=== PATIENT | female | born 1970 | race Two or more races ===

== ENCOUNTER → 2024-02-23 | Outpatient (CLI) | payer MEDICAID, SELFPAY ==
--- NOTE | 2024-02-23 13:30 | XR_ITS ---
Examination: Venous duplex lower extremity sonogram, bilateral. Date and time of exam: February 23, 2024 1354 hours INDICATIONS: Bilateral leg and knee pain instability in the legs 10 months burning sensation in the legs several months Technique: Multiple sonographic images of the deep venous system have been obtained. B-mode/2-D grayscale imaging of vascular structures and Doppler spectral analysis (waveforms) and color performed Both legs are examined. Findings: Deep venous systems do not demonstrate abnormal echogenicity. All visualized deep veins exhibit compressibility. All visualized deep veins exhibit augmentation. Impression: Negative for deep vein thrombosis
== END | disposition home or self-care (01) ==
PROVIDERS: PCP Nurse Practitioner Family; Referring Provider Nurse Practitioner Family; Visit Provider Nurse Practitioner Family
DX: I87.2 Venous insufficiency (chronic) (peripheral) (principal)
CPT/HCPCS: 93970

== ENCOUNTER 2024-04-11 08:04 | Outpatient (RCR) | payer MEDICAID, SELFPAY ==
--- NOTE | 2024-04-11 08:39 | PT.OIERPT ---
PT OP Initial Eval Patient Information Outpatient Physical Therapy Treatment Date: 04/11/24 Visit Reasons: Spinal stenosis/Cervical Region Medical Diagnosis: M48.02 Treatment Dx #1: neck pain Start of Care: 04/11/24 Date of Onset: 10 months Smoking Status Smoking Status: Never smoker Initial Assessment Subjective: Pt is 54 yr old croatian speaking female who reports neck pain on the R>L sides. Increased pain in the neck with lifting things and looking to the R side. In the past she has felt numbness and pain into the UE's but hasn't had that for a month. PMH: high cholesterol Imaging: MRI of neck C4-C5 mild left neural foraminal stenosis, C5-C6 advanced left neural foraminal stenosis Pt goal: to get rid of the neck pain Objective: C/S AROM: ? Ext 50% with pain in R UT at end-range ? Flexion full ? L rotation: 80% of full with pain R UT ? R rotation: full ? TTP: moderate of lower C/S paraspinals around C4-7 and UT?s on R side ? B shoulder AROM: full FF ? [employer] lab[employer] strength: R: 85 lbs, L: 80 lbs Assessment: Pt presents with myofascial tenderness of lower C/S and R side UT. Pt requires skilled therapy to meet goals and has fair rehab potential. Short Term and [facility]ci Goals 1. Ind with HEP ? 2. Improved L rotation to 65 deg without pain ? 3. Decreased TTP of lower C/S on R from mod to min ? 4. Pt will turn head L to R x5 with <=4/10 pain Treatment Plan 1. Manual therapy ? 2. Therex ? 3. Modalities as indicated, mechanical traction, estim, moist heat, ice Frequency and Duration: 1-2x a week for 8 Rx sessions plus evaluation Certification Dates: 04/11/24 to 07/09/24 Procedure Charges OP PT Eval Mod Complex 30 minutes: Yes
== END 2024-04-15 23:59 | disposition home or self-care (01) ==
LOC: CPTX 08:04
PROVIDERS: PCP Nurse Practitioner Family; Referring Provider Nurse Practitioner Family; Visit Provider Nurse Practitioner Family
DX: M48.02 Spinal stenosis, cervical region (principal)
CPT/HCPCS: 97162

== ENCOUNTER → 2024-05-06 | Outpatient (CLI) | payer MEDICAID, SELFPAY ==
--- NOTE | 2024-05-06 14:00 | XR_ITS ---
Examination: Breast ultrasound complete, bilateral Date and time of exam: May 06, 2024 1425 hours INDICATIONS: Mammogram 11/11/2023 15 mm focal asymmetry upper outer left breast Technique: Real-time grayscale ultrasonographic imaging bilateral breasts, including all 4 quadrants as well as nipple retroareolar and axillary regions. Findings: No cystic or solid mass involving either breast IMPRESSION: BI-RADS Category 1: Negative study
--- NOTE | 2024-05-06 15:00 | XR_ITS ---
Examination: Diagnostic digital mammography, unilateral, left Computer aided detection 3-D breast Tomosynthesis, unilateral Date and time of exam: May 06, 2024 1439 hours INDICATIONS: Mammogram 12/11/2023 15 mm focal asymmetry outer left breast Technique: Nonmagnified MLO, CC views of the left breast have been obtained, reconstructed from 3-D Tomosynthesis images. R2 computer aided detection program utilized for evaluation of suspicious masses and/or abnormal calcifications. 3-D Tomosynthesis images obtained. Findings: Breast is heterogeneously dense, which may obscure small masses Spot compression views demonstrate circumscribed 5 mm nodule outer left breast which may represent intramammary lymph node Impression: BI-RADS category 3: Probably benign findings One additional 6 month left mammogram follow-up is needed to document stability of probably benign 5 mm intramammary lymph node outer left breast
== END | disposition home or self-care (01) ==
LOC: CDIM 13:47
PROVIDERS: PCP Nurse Practitioner Family; Referring Provider Nurse Practitioner Family; Visit Provider Nurse Practitioner Family
DX: R92.332 Mammographic heterogeneous density, left breast (principal)
CPT/HCPCS: 76641; 77061; 77065; G0279

== ENCOUNTER 2024-05-16 09:00 | Outpatient (RCR) | payer MEDICAID, SELFPAY ==
--- NOTE | 2024-04-18 10:01 | PT.ODAYNRPT ---
PT Outpatient Daily Note OP Daily Note Outpatient Physical Therapy Treatment Date: 04/18/24 Visit Reasons: Spinal stenosis/cervical region Subjective: Same as time of eval Objective: see f/S for sarita CABRAL x5' MT: PRUDENCIO [place] UT's x7' Assessment: Good demo of chin tucks with low neck pain Plan: Continue with POC Length of Time (minutes) of Treatment: 30 Minutes Procedure Charges Therapeutic Exercise 30 minutes: Yes
--- NOTE | 2024-04-20 09:40 | PT.ODAYNRPT ---
PT Outpatient Daily Note OP Daily Note Outpatient Physical Therapy Treatment Date: 04/20/24 Visit Reasons: Spinal stenosis/cervical region Subjective: Pt reports neck is doing ok. Objective: Please see flow sheet for ther ex list. Assessment: Pt demonstrates good technique during cervical retraction exercise moving c/s in desired direction. Plan: Continue with POC. Length of Time (minutes) of Treatment: 30 Minutes Procedure Charges Therapeutic Exercise 30 minutes: Yes
--- NOTE | 2024-04-25 09:55 | PT.ODAYNRPT ---
PT Outpatient Daily Note OP Daily Note Outpatient Physical Therapy Treatment Date: 04/25/24 Visit Reasons: Spinal stenosis/cervical region Subjective: Continued pain R side of upper T/S Objective: see f/S for jesusx MISHA x5' MT: PRUDENCIO [place] UT's x7' Assessment: Good demo of chin tucks with low neck pain Plan: Continue with POC Length of Time (minutes) of Treatment: 30 Minutes Procedure Charges Therapeutic Exercise 30 minutes: Yes
--- NOTE | 2024-04-27 09:31 | PT.ODAYNRPT ---
PT Outpatient Daily Note OP Daily Note Outpatient Physical Therapy Treatment Date: 04/27/24 Visit Reasons: Spinal stenosis/cervical region Subjective: Pt c/o 09/25 neck pain and shared that yesterday was 11/25. Pt mentioned that the last time she had a follow up with doctor she did not tell the doctor of her pain level because she does not want to be prescribed pain meds, she does not like to take them. Objective: Please see flow sheet for ther ex list. Assessment: Regressed interventions to accommodate reported pain. Plan: Continue with POC, assess respone to treatment. Length of Time (minutes) of Treatment: 30 Minutes Procedure Charges Therapeutic Exercise 30 minutes: Yes
--- NOTE | 2024-05-04 09:53 | PT.ODAYNRPT ---
PT Outpatient Daily Note OP Daily Note Outpatient Physical Therapy Treatment Date: 05/04/24 Visit Reasons: Spinal stenosis/cervical region Subjective: Pt reports neck feel the same, continues to have pain. Objective: Please see flow sheet for ther ex list. Assessment: Added mechanical traction to c/s, pt tolerated well. Plan: Continue with pOC. Length of Time (minutes) of Treatment: 30 Minutes Procedure Charges Therapeutic Exercise 30 minutes: Yes
--- NOTE | 2024-05-11 10:08 | PT.ODAYNRPT ---
PT Outpatient Daily Note OP Daily Note Outpatient Physical Therapy Treatment Date: 05/11/24 Visit Reasons: Spinal stenosis/cervical region Subjective: Pt reports she felt some relief after last PT session. Objective: Please see flow sheet for ther ex list. Assessment: Applied cervical traction, pt tolerated well completed with good tolerance. Plan: Continue with POC. Length of Time (minutes) of Treatment: 30 Minutes Procedure Charges Therapeutic Exercise 30 minutes: Yes
--- NOTE | 2024-05-13 10:33 | PT.ODAYNRPT ---
PT Outpatient Daily Note OP Daily Note Outpatient Physical Therapy Treatment Date: 05/13/24 Visit Reasons: Spinal stenosis/cervical region Subjective: Pt reports neck pain has reduced some. pt c/o tingling sensation on the back of the head, has experienced it before. Objective: Please see flow sheet for ther ex list. Assessment: Decrease c/o pain during interventions indicating progress. Plan: Continue with POC. Length of Time (minutes) of Treatment: 30 Minutes Procedure Charges Therapeutic Exercise 30 minutes: Yes
--- NOTE | 2024-05-16 18:34 | PT.ODS1RPT ---
PT OP Progress/Discharge Note Date of Service: 05/16/24 Progress Note/DC Note Progress Note/Discharge Note: Progress Note Patient Information Visit Reasons: Spinal stenosis/cervical region Service Continue Service or Discharge: Continue Service Status Subjective: Continued pain R side of upper T/S. Objective: see f/S for therex MHP x5' Assessment: Pt has attended 8/8 Rx visits on the provider referral with fair progress with good response to cervical traction to reduce neck pain. Pt has good demo of chin tucks with low neck pain. She has decreased TTP of lower C/S on R from mod to min. Pt would benefit from continued therapy to meet AROM goal of 65 deg of L rotation. Plan: Request additional visits x8. We need provider's signature on this note to continue with POC Procedure Charges Therapeutic Exercise 30 minutes: Yes
== END 2024-05-16 23:59 | disposition home or self-care (01) ==
LOC: CPTX 09:00
PROVIDERS: PCP Nurse Practitioner Family; Referring Provider Nurse Practitioner Family; Visit Provider Nurse Practitioner Family
DX: M48.02 Spinal stenosis, cervical region (principal)
CPT/HCPCS: 97110

== ENCOUNTER → 2024-06-15 | Outpatient (CLI) | payer MEDICAID, SELFPAY ==
--- NOTE | 2024-06-15 | XR_ITS ---
Examination: Lumbar spine 3 views Technique one AP lateral coned lateral lower lumbar spine 3 views Exam date and time: June 15, 2024 1240 hours INDICATIONS: Patient fell one year ago with injury to lower back, persistent lower back pain radiating down the right hip. FINDINGS: Lumbar dextroscoliosis 8 degrees Spina bifida S1 No lumbar fracture Mild disc narrowing L5-S1 IMPRESSION: No lumbar fracture Mild disc narrowing L5-S1
== END | disposition home or self-care (01) ==
PROVIDERS: PCP Nurse Practitioner Family; Referring Provider Nurse Practitioner Family; Visit Provider Nurse Practitioner Family
DX: M48.07 Spinal stenosis, lumbosacral region (principal); M54.42 Lumbago with sciatica, left side; M54.41 Lumbago with sciatica, right side
CPT/HCPCS: 72100

== ENCOUNTER → 2024-08-17 | Outpatient (CLI) | payer MEDICAID, SELFPAY ==
--- NOTE | 2024-08-17 | XR_ITS ---
Examination: Lumbar spine, 5 views Technique: Lumbar spine AP, lateral, coned lateral lower lumbar spine, bilateral obliques 5 views Exam date and time: August 17, 2024 1213 hours INDICATIONS: Low back pain beginning one year ago. FINDINGS: Lumbar dextroscoliosis 8 degrees Spina bifida S1 Mild to moderate narrowing hip joints Mild to moderate diffuse facet arthropathy No lumbar fracture Mild disc narrowing L5-S1 No spondylolisthesis IMPRESSION: Mild disc narrowing L5-S1
--- NOTE | 2024-08-17 | XR_ITS ---
Examination: Sacroiliac joints TECHNIQUE: AP, SAEED CUBAN sacroiliac joints 3 views Date and time: August 17, 2024 1216 hours INDICATIONS: Syncopal pain one year. FINDINGS: Mild bilateral sacroiliitis, sclerosis and minimal cortical bone erosions at the SI joints Symmetrical sacral foramina No fractures IMPRESSION: Mild bilateral sacroiliitis
== END | disposition home or self-care (01) ==
PROVIDERS: PCP Nurse Practitioner Family; Referring Provider Internal Medicine Rheumatology; Visit Provider Internal Medicine Rheumatology
DX: M48.07 Spinal stenosis, lumbosacral region (principal); M46.1 Sacroiliitis, not elsewhere classified
CPT/HCPCS: 72110; 72202

== ENCOUNTER 2024-10-12 09:00 | Outpatient (RCR) | payer MEDICAID, SELFPAY ==
--- NOTE | 2024-09-28 14:43 | PTNOTE_ITS ---
PT OP Initial Eval Patient Information Outpatient Physical Therapy Treatment Date: 09/28/24 Visit Reasons: Lumbar spine Medical Diagnosis: M54.50 Treatment Dx #1: LBP Start of Care: 09/28/24 Date of Onset: 1 yr ago Smoking Status Smoking Status: Never smoker Initial Assessment Subjective: Pt is 54 yr old uzbek speaking female who c/o LBP and L sided pain and the LE feels numb. Increased pain with bending, prolonged standing and walking. She hasn't been working due to this and other pain. PMH: high cholesterol Imaging: Xrays of L/S Lumbar dextroscoliosis 8 degrees?, spina bifida S1?, Mild to moderate diffuse facet arthropathy, Mild disc narrowing L5-S1? Pt goal: to get rid of the LBP Objective: Trunk ArOM: ? B SB 50% of normal ? Extension: 20% with pain around L4-5, L5-S1 ? Flexion: 15 from floor with LBP ? B rotation: 60% ? TTP: moderate paraspinals L5-S1 ? Neuro: B SLR: negative Assessment: Pt presents with trunk extension sensitivity consistent with Xrays that show increased sacral angle. Pt requires skilled therapy to meet goals and has fair rehab potential. Eval followed by HEP. Short Term and Buffer Inflated Pad Goals 1. Ind with HEP ? 2. Improved standing tolerance to 40 minutes with <=4/10 LBP ? 3. Decreased lower paraspinal TTP from mod to min 4. Improved HH chore tolerance to at least 30 minutes with <=3/10 LBP and no ?increase in LE ssx ? Treatment Plan 1. Manual therapy ? 2. Therex ? 3. Modalities as indicated, moist heat, ice, estim, mechanical traction ? Frequency and Duration: 1-2x a week for 12 visits plus the evaluation Certification Dates: 09/28/24 to 12/27/24 Procedure Charges OP PT Eval Mod Complex 30 minutes: Yes
--- NOTE | 2024-10-03 09:10 | PT.ODAYNRPT ---
PT Outpatient Daily Note OP Daily Note Outpatient Physical Therapy Treatment Date: 10/03/24 Visit Reasons: Lumbar spine Subjective: Same as time of evaluation Objective: See F/S for therex Assessment: Good demo of posterior pelvic tilting to decrease sacral angle in supine and on the wall Plan: Continue per POC Length of Time (minutes) of Treatment: 30 Minutes Procedure Charges Therapeutic Exercise 30 minutes: Yes
--- NOTE | 2024-10-10 09:46 | PT.ODAYNRPT ---
PT Outpatient Daily Note OP Daily Note Outpatient Physical Therapy Treatment Date: 10/10/24 Visit Reasons: Lumbar spine Subjective: Continued R sided LBP Objective: See F/S for therex MHPx7' MT: STM R side of L/S and HVT rotary x1, x7' Assessment: Good demo of posterior pelvic tilting to decrease sacral angle in supine and on the wall Plan: Continue per POC Length of Time (minutes) of Treatment: 30 Minutes Procedure Charges Therapeutic Exercise 30 minutes: Yes
--- NOTE | 2024-10-12 10:57 | PT.ODAYNRPT ---
PT Outpatient Daily Note OP Daily Note Outpatient Physical Therapy Treatment Date: 10/12/24 Visit Reasons: Lumbar spine Subjective: Pt reports LBP is the same, no changes to report. Objective: Please see flow sheet for ther ex list. Assessment: Pt presents with slow progress with symptoms. Plan: Continue with pOC. Length of Time (minutes) of Treatment: 30 Minutes Procedure Charges Therapeutic Exercise 30 minutes: Yes
== END 2024-10-16 23:59 | disposition home or self-care (01) ==
LOC: CPTX 09:00
PROVIDERS: PCP Nurse Practitioner; Referring Provider Nurse Practitioner; Visit Provider Nurse Practitioner
DX: M54.50 Low back pain, unspecified (principal); R20.0 Anesthesia of skin
CPT/HCPCS: 97110; 97162

== ENCOUNTER 2024-11-01 08:00 | Outpatient (RCR) | payer MEDICAID, SELFPAY ==
--- NOTE | 2024-10-18 09:25 | PT.ODAYNRPT ---
PT Outpatient Daily Note OP Daily Note Outpatient Physical Therapy Treatment Date: 10/18/24 Visit Reasons: Lumbar spine Subjective: Pt reports some improvement in pain intensity of L/S. Objective: Please see flow sheet for ther ex list. Assessment: Pt demonstrates good technique with PPT exercise indicating compliance with HEP. Plan: Continue with pOC. Length of Time (minutes) of Treatment: 30 Minutes Procedure Charges Therapeutic Exercise 30 minutes: Yes
--- NOTE | 2024-10-20 10:40 | PTNOTE_ITS ---
PT Outpatient Daily Note OP Daily Note Outpatient Physical Therapy Treatment Date: 10/20/24 Visit Reasons: Lumbar spine Subjective: Pt reports progress with l/s are slow continues to have numbing sensation of L LE. Objective: Please see flow sheet for ther ex list. Assessment: Added mechanical traction, pt tolerated well. Plan: Assess response to treatment. Length of Time (minutes) of Treatment: 30 Minutes Procedure Charges Therapeutic Exercise 30 minutes: Yes
--- NOTE | 2024-10-27 10:06 | PT.ODAYNRPT ---
PT Outpatient Daily Note OP Daily Note Outpatient Physical Therapy Treatment Date: 10/27/24 Visit Reasons: Lumbar spine Subjective: Pt reports increase in LE numbing post last PT session lated a few hours. Pt reports that she is stil having pain in R l/s region and numbing/tingling in L LE is still present but not consisitent. Objective: Please see flow sheet for ther ex list. Assessment: Pt instructed on april, pt able to perform with isometric abdominal contraction. Plan: Continue with poC. Length of Time (minutes) of Treatment: 30 Minutes Procedure Charges Therapeutic Exercise 30 minutes: Yes
--- NOTE | 2024-11-01 13:00 | PT.ODS1RPT ---
PT OP Progress/Discharge Note Date of Service: 11/01/24 Progress Note/DC Note Progress Note/Discharge Note: DC Note Patient Information Visit Reasons: Lumbar spine Service Continue Service or Discharge: Discharge Discharge Date: 11/01/24 Status Subjective: The LBP is about the same as before therapy and she wants to do therapy for her knee and be done with the L/S. Objective: Trunk AROM: FB: 12 from floor with LBP Extension: 30% of full with pain around R L5-S1 TTP: moderate L5-S1 paraspinals on R Assessment: Pt attended the evaluation and 6 Rx sessions with limited progress with therapy goals due to continued LBP. Pt presents with trunk extension sensitivity consistent with Xrays that show increased sacral angle. She was taught posterior pelvic tilting which should help with the sacral angle. She hasn't met her goals. PT recommends further diagnostic imaging of L/S such as MRI. Plan: D/C Procedure Charges Therapeutic Exercise 30 minutes: Yes
== END 2024-11-15 23:59 | disposition home or self-care (01) ==
LOC: CPTX 08:00
PROVIDERS: PCP Nurse Practitioner; Referring Provider Nurse Practitioner; Visit Provider Nurse Practitioner
DX: M54.50 Low back pain, unspecified (principal); R20.0 Anesthesia of skin
CPT/HCPCS: 97110

== ENCOUNTER 2024-11-15 08:00 | Outpatient (RCR) | payer MEDICAID, SELFPAY ==
--- NOTE | 2024-11-03 09:38 | PT.OIERPT ---
PT OP Initial Eval Patient Information Outpatient Physical Therapy Treatment Date: 11/03/24 Visit Reasons: RT knee Medical Diagnosis: Z98.890 Treatment Dx #1: R knee pain Start of Care: 11/03/24 Date of Onset: 07/27/24 Smoking Status Smoking Status: Never smoker Initial Assessment Subjective: Pt is 54 yr old montenegrin speaking female s/p R knee A/S reports knee pain with squatting and stairs. She can walk all day but has pain with squatting. PMH: high cholesterol Pt goal: to get rid of the pain Objective: R knee AROM: ? Flexion: full ? Extension: -3 deg ? Varus/valgus: positive gapping into valgus ? SLR: 65 deg with slight extensor lag ? Strength: R quads 4-/5 hamstrings 4/5 Assessment: Pt presentation consistent with post op R knee A/S with decreased ROM, ? strength and WB tolerance. Pt ambulates with decreased WB on R. Pt can SLR slowly and has slight extensor lag. Pt has ? good rehab potential with attainable functional improvement. Short Term and Intermediate Goals 1. Independent with HEP ? 2. Improved quad and hamstring strength to 4+/5 ? 3. Improved squat tolerance x10 without R knee pain 4. Pt will ascend/descend 1 flight of stairs with <=3/10 R knee pain Treatment Plan 1. Manual therapy ? 2. Therex ? 3. Modalities as indicated, moist heat, ice, estim ? Frequency and Duration: 2x a week for 12 Rx sessions plus the evaluation Certification Dates: 11/03/24 to 01/31/25 Procedure Charges OP PT Eval Mod Complex 30 minutes: Yes
--- NOTE | 2024-11-08 10:38 | PTNOTE_ITS ---
PT Outpatient Daily Note <TERESE Pineda - Last Filed: 11/08/24 10:40> OP Daily Note Outpatient Physical Therapy Treatment Date: 11/08/24 Visit Reasons: RT knee Subjective: Pt c/o minimal Rt knee pain, explains pain increases with squats and ascending/descending stairs. Objective: See F/S for therex performed Assessment: No increase in pain with therex. Min vc's required to avoid trunk lean with 3- way hip exercise; able to self correct. Demo'd good mechanics with total gym squats. Plan: Continue with POC Length of Time (minutes) of Treatment: 30 Minutes <Greg Alex, PT - Last Filed: 12/12/24 17:06> OP Daily Note Subjective: Pt says pain increases with squats and ascending/descending stairs. Objective: See F/S for therex Assessment: Low R knee pain with therex Plan: Continue per POC Procedure Charges <TERESE Pineda - Last Filed: 11/08/24 10:40> Therapeutic Exercise 30 minutes: Yes
--- NOTE | 2024-11-10 09:34 | PT.ODAYNRPT ---
PT Outpatient Daily Note OP Daily Note Outpatient Physical Therapy Treatment Date: 11/10/24 Visit Reasons: RT knee Subjective: Pt c/o minimal Rt knee pain Objective: See F/S for therex performed Assessment: Progressed to resisted lateral steps and monster walk; good tolerance with appropriate fatigue. Min vc's required to avoid trunk leaning with resisted lateral steps. No increase in pain with therex. Plan: Continue with POC Length of Time (minutes) of Treatment: 30 Minutes Procedure Charges Therapeutic Exercise 30 minutes: Yes
--- NOTE | 2024-11-15 08:34 | PT.ODAYNRPT ---
PT Outpatient Daily Note OP Daily Note Outpatient Physical Therapy Treatment Date: 11/15/24 Visit Reasons: RT knee Subjective: Pt states she is doing well with no pain to Rt knee Objective: See F/S for therex performed Assessment: Improved squat mechanics; performed best with using treatment table as tactile cue. No pain with therex and appropriate fatigue. Plan: Continue with POC Length of Time (minutes) of Treatment: 30 Minutes Procedure Charges Therapeutic Exercise 30 minutes: Yes
== END 2024-11-15 23:59 | disposition home or self-care (01) ==
LOC: CPTX 08:00
PROVIDERS: PCP Orthopaedic Surgery; Referring Provider Orthopaedic Surgery; Visit Provider Orthopaedic Surgery
DX: M25.561 Pain in right knee (principal); Z98.890 Other specified postprocedural states
CPT/HCPCS: 97110; 97162

== ENCOUNTER 2024-12-01 08:00 | Outpatient (RCR) | payer MEDICAID, SELFPAY ==
--- NOTE | 2024-11-17 09:08 | PT.ODAYNRPT ---
PT Outpatient Daily Note OP Daily Note Outpatient Physical Therapy Treatment Date: 11/17/24 Visit Reasons: right knee pain Subjective: Pt c/o minimal soreness to Rt knee Objective: See F/S for therex performed Assessment: Improved independence with exercises, less corrective cues required to avoid compensation with trunk movement. No increase in pain with therex. Plan: Continue with POC Length of Time (minutes) of Treatment: 30 Minutes Procedure Charges Therapeutic Exercise 30 minutes: Yes
--- NOTE | 2024-11-22 09:20 | PT.ODAYNRPT ---
PT Outpatient Daily Note OP Daily Note Outpatient Physical Therapy Treatment Date: 11/22/24 Visit Reasons: right knee pain Subjective: Pt points to the lateral distal quad as site of pain when she squats Objective: See F/S for therex TENS: x5' Assessment: Pt has moderate gapping with valgus stress testing which may contribute to ssx. Plan: Continue per POC Length of Time (minutes) of Treatment: 30 Minutes Procedure Charges Therapeutic Exercise 30 minutes: Yes
--- NOTE | 2024-11-24 08:12 | PT.ODAYNRPT ---
PT Outpatient Daily Note OP Daily Note Outpatient Physical Therapy Treatment Date: 11/24/24 Visit Reasons: right knee pain Subjective: Pt points to the lateral distal quad as site of pain when she squats Objective: See F/S for therex TENS: x5' with MHP Assessment: Pt has moderate gapping with valgus stress testing which may contribute to continued pain Plan: Continue per POC Length of Time (minutes) of Treatment: 30 Minutes Procedure Charges Therapeutic Exercise 30 minutes: Yes
--- NOTE | 2024-11-29 08:33 | PT.ODAYNRPT ---
PT Outpatient Daily Note OP Daily Note Outpatient Physical Therapy Treatment Date: 11/29/24 Visit Reasons: right knee pain Subjective: Pt points to the lateral distal quad as site of pain when she squats Objective: See F/S for therex TENS: x7' Assessment: Pt has moderate gapping with valgus stress testing which may contribute to continued pain Plan: Continue per POC Length of Time (minutes) of Treatment: 30 Minutes Procedure Charges Therapeutic Exercise 30 minutes: Yes
--- NOTE | 2024-12-01 10:33 | PT.ODS1RPT ---
PT OP Progress/Discharge Note Date of Service: 12/01/24 Progress Note/DC Note Progress Note/Discharge Note: DC Note Patient Information Visit Reasons: right knee pain Service Continue Service or Discharge: Discharge Status Subjective: The R knee feels about the same since starting therapy. She reports a clicking and points to the posterolateral part of the knee and that the R lateral fat pad hurts. She's ready to be done with therapy. Objective: R knee ArOM: Flexion: full Extension: full SLR: 65 deg Strength: Quads: 4/5 HS: 4/5 Assessment: Pt has attended 09/23 visits with limited progress with therapy goals due to continued R knee pain. Pt has improved knee extension ROM to full. She has improved quad and HS strength to 4/5 which is short of goal of 4+/5. She can squat x10 but with R knee pain so she didn't meet that goal. She may benefit from further diagnostic imaging of R knee. Plan: D/C with HEP Procedure Charges Therapeutic Exercise 30 minutes: Yes
== END 2024-12-16 23:59 | disposition home or self-care (01) ==
LOC: CPTX 08:00
PROVIDERS: PCP Orthopaedic Surgery; Referring Provider Orthopaedic Surgery; Visit Provider Orthopaedic Surgery
DX: M25.561 Pain in right knee (principal); Z98.890 Other specified postprocedural states
CPT/HCPCS: 97110

== ENCOUNTER → 2024-12-30 | Outpatient (CLI) | payer MEDICAID, SELFPAY ==
--- NOTE | 2024-12-30 08:30 | XR_ITS ---
Examination: MRI lumbar spine without contrast Date and time of exam: December 30, 2024, 0855 hours INDICATIONS: Lower back pain radiating to both legs 2 years. Technique: Multiple MRI axial and sagittal sections lumbar spine. Sagittal T2-weighted images, TR 3500, TE 118 T1 weighted transverse sections, TR 688 T8.5, T2-weighted sagittal sections T1 weighted sagittal sections TR 621, TE 30 T2 axial sections, TR 4, 190, TE 84. Findings: Minimal anterolisthesis L4 on L5 No lumbar fracture Disc desiccation lower 3 lumbar levels L5-S1 4 mm central lumbar disc bulge contiguous with the left S1 nerve root L4-L5 2 mm central lumbar disc bulge L3-L4 no disc protrusion L2-L3 no disc protrusion L1-2 no disc protrusion IMPRESSION: L5-S1 4 mm central lumbar disc bulge contiguous with the left S1 nerve. L4-L5 2 mm central lumbar disc bulge
== END | disposition home or self-care (01) ==
LOC: SMRI 08:01
PROVIDERS: PCP Nurse Practitioner Family; Referring Provider Internal Medicine Rheumatology; Visit Provider Internal Medicine Rheumatology
DX: M51.370 Other intervertebral disc degeneration, lumbosacral region with discogenic back pain only (principal); M51.360 Other intervertebral disc degeneration, lumbar region with discogenic back pain only
CPT/HCPCS: 72148